=== PATIENT | male | born 1985 | race African-American/Black ===

== ENCOUNTER 2021-08-31 14:11 | Emergency (ER) | payer OTHER ==
[~2021-08-31] VITALS: Ht 167.6 cm; Wt 83.0 kg
[2021-08-31] MEDS ORDERED: ABILIFY (14:21)
[2021-08-31] MEDS ORDERED: LEXAPRO (14:21)
[2021-08-31] MEDS ORDERED: HALDOL (14:21)
[2021-08-31 15:12] LABS: CHLORIDE 104 mEq/L (98-107)
[2021-08-31 15:16] LABS: ETHANOL BLOOD < 10 mg/dL
[2021-08-31 15:17] LABS: CLARITY URINE CLEAR (CLEAR); COLOR URINE YELLOW (YELLOW); KETONES URINE TRACE (NEGATIVE); LEUKOCYTE ESTERASE URINE NEGATIVE (NEGATIVE); NITRITE URINE NEGATIVE (NEGATIVE); OCCULT BLOOD URINE NEGATIVE (NEGATIVE); PH URINE 5.5 (4.5-8.0); PROTEIN URINE TRACE (NEGATIVE); SPECIFIC GRAVITY URINE 1.023 (1.005-1.030)
[2021-08-31 15:27] LABS: CANNABINOID URINE SCREEN NEGATIVE (NEGATIVE); PHENCYCLIDINE URINE SCREEN NEGATIVE (NEGATIVE)
[2021-08-31 15:28] LABS: *AMPHETAMINES SCREEN URINE NEGATIVE (NEGATIVE); *BARBITURATES SCREEN URINE NEGATIVE (NEGATIVE); *BENZODIAZEPINES SCREEN URINE NEGATIVE (NEGATIVE); *COCAINE SCREEN URINE NEGATIVE (NEGATIVE); METHADONE URINE SCREEN NEGATIVE (NEGATIVE); OPIATES URINE SCREEN NEGATIVE (NEGATIVE)
[2021-08-31 15:28] LABS: EOSINOPHILS % 0.5 % (0.0-5.0); HEMATOCRIT. 36.3 % (42.0-52.0); HEMOGLOBIN. 11.9 g/dL (14.0-18.0); LYMPHOCYTES % 32.1 % (20.0-50.0); MEAN CORPUSCULAR HEMOGLOBIN 23.2 pg (28.0-32.0); MEAN CORPUSCULAR VOLUME 70.5 fL (80.0-94.0); MEAN PLATELET VOLUME 8.4 fl (7.4-10.4); MONOCYTES % 7.4 % (2.0-8.0); PLATELET 273 x1000/uL (130-400); RED BLOOD CELL COUNT 5.14 mill/uL (4.7-6.1); RED CELL DISTRIBUTION WIDTH 16.5 % (11.6-14.6)
[2021-08-31] MEDS ORDERED: LORAZEPAM 1MG TABLET PO ONE (18:15)
[2021-08-31] MEDS ORDERED: HALOPERIDOL LACTATE 5MG/ML VIAL IM ONE (20:15)
[2021-09-01] MEDS: FLUOXETINE HCL 20MG CAPSULE PO SCH (08:52)
[2021-09-01] MEDS: ARIPIPRAZOLE 5MG TABLET PO SCH (08:53)
[2021-09-01] MEDS ORDERED: LORAZEPAM 1MG TABLET PO ONE (17:00)
[2021-09-02] MEDS: ARIPIPRAZOLE 5MG TABLET PO SCH (09:00)
[2021-09-02] MEDS: FLUOXETINE HCL 20MG CAPSULE PO SCH (09:00)
[2021-09-02] MEDS ORDERED: LORAZEPAM 1MG TABLET PO ONE (16:15)
[2021-09-02] MEDS: BUSPIRONE HCL 10MG TABLET PO SCH (21:13)
[2021-09-03] MEDS: ARIPIPRAZOLE 5MG TABLET PO SCH (09:00)
[2021-09-03] MEDS: FLUOXETINE HCL 20MG CAPSULE PO SCH (09:00)
[2021-09-03] MEDS: BUSPIRONE HCL 10MG TABLET PO SCH ×2 (09:00→21:44)
[2021-09-03] MEDS ORDERED: LORAZEPAM 1MG TABLET PO ONE (16:15)
[2021-09-03] MEDS ORDERED: LORAZEPAM 1MG TABLET PO NR (16:30)
[2021-09-04 09:26] VITALS: BP 128/75
[2021-09-04] MEDS ORDERED: FLUO20CA33 PO (09:40)
[2021-09-04] MEDS ORDERED: ABIL5 PO (09:40)
[2021-09-04] MEDS: ARIPIPRAZOLE 5MG TABLET PO SCH (10:19)
[2021-09-04] MEDS: FLUOXETINE HCL 20MG CAPSULE PO SCH (10:19)
[2021-09-04] MEDS: BUSPIRONE HCL 10MG TABLET PO SCH (10:19)
== END 2021-09-04 11:24 | disposition home or self-care (01) ==
LOC: ER 14:30
DX: R45.851 Suicidal ideations (principal); F12.10 Cannabis abuse, uncomplicated; Z20.822 Contact with and (suspected) exposure to COVID-19; Z75.1 Person awaiting admission to adequate facility elsewhere; Z59.00 Homelessness unspecified; Z86.59 Personal history of other mental and behavioral disorders
CPT/HCPCS: 36415; 80053; 80305; 80307; 80320; 80329; 81003; 84443; 85025; 87426; 96372; 99285; C9803; J1630; U0005; G0480